=== PATIENT | female | born 1940 | race Hispanic/Latino ===

== ENCOUNTER 2019-07-25 14:19 | Outpatient (CLI) | payer MEDICARE ==
--- NOTE | 2019-07-27 10:44 | Mammography Report ---
BONE DEXA CLINICAL: Postmenopausal. COMPARISON: 01/19/2014 TECHNIQUE: 2 site bone DEXA performed on an Hologic scanner. FINDINGS: The average BMD of the lumbar spine L1-L4 is 0.979g/cm squared with a T score of -0.6 and a Z score o f +1.9. This compares to 0.994g/cm squared on the last exam and represents a -1.6 % change from the [ previous baseline]. The average BMD of the left hip is 0.709 g/cm squared with a T score of -1.9and a Z score of 0. This compares to 0.670 g/cm squared on the last exam and represents a +5.8 % change from the [previous bas juliana]. IMPRESSION: 1. WHO classification: Normal with average fracture risk based on spine measurements. 2. WHO classification Osteopenia with increased fracture risk based on left hip measurements. 3. A slight decline in spine BMD but a moderate increase in left hip BMD compared to the last exam. RECOMMENDATION: Clinical correlation and routine screening. Definitions: BMD equal bone mineral density T score = BMD related to peak bone mass of young adult ([place] expressed an standard deviation) Z score = age-matched BMD expressed in SD World health organization (WHO) diagnostic criteria Normal T score greater than equal to 1 standard deviation Osteopenia T score between -1 and -2.4 standard deviation Osteoporosis T score -2.5 standard deviation or below. Note: BMD is not the only risk factor for fracture; also consider factors such as the patient's age, risk of falling, previous osteoporotic fracture, family history of osteoporotic fractures, current sm oker and low body weight. Z scores are not calculated if greater than 80 years of age. Signer Name: Robert Stanford MD Signed: 07/27/2019 10:40 AM Workstation Name: [id number]
== END 2019-07-25 14:20 | disposition home or self-care (01) ==
LOC: SPVWC 14:19
PROVIDERS: ATTEND Internal Medicine
DX: Z78.0 Asymptomatic menopausal state (principal)
CPT/HCPCS: 77080